=== PATIENT | male | born 1995 | race Caucasian/White ===

== ENCOUNTER 2019-09-09 07:46 | Emergency (ER) | payer OTHER ==
[~2019-09-09] VITALS: Ht 167.6 cm; Wt 63.5 kg
[2019-09-09 08:20] LABS: Urine Bacteria NONE SEEN /hpf (None Seen); Urine Blood Negative /uL (Negative); Urine Specific Gravity 1.004 (1.001-1.035); Urine WBC 1 /hpf (0 - 3)
[2019-09-09 08:35] LABS: Amphetamine Screen, Urine NEGATIVE (NEGATIVE); Barbiturate Scree,Urine NEGATIVE (NEGATIVE); Benzodiazephine Screen, Urine NEGATIVE (NEGATIVE); Cocaine Screen, Urine POSITIVE (NEGATIVE); Opiate Scree,Urine NEGATIVE (NEGATIVE); Phencyclidine Screen, Urine NEGATIVE (NEGATIVE)
[2019-09-09 09:06] LABS: Basophils # (auto) 0 uL; Basophils % (auto) 0.5 % (0.0-2.0); Eosinophils # (auto) 0.1 uL; Eosinophils % (auto) 0.7 % (0.0-7.0); Hematocrit 47.9 % (41.0-53.0); Hemoglobin 16.3 g/dL (13.5-17.5); Lymphocytes # (auto) 1.8 uL; Lymphocytes % (auto) 18.7 % (10.0-50.0); Mean Corpuscular Hemoglobin 29.6 pg (28.0-32.0); Monocytes # (auto) 0.4 uL; Monocytes % (auto) 4.3 % (0.0-12.0); Neutrophils # (auto) 7.5 uL; Neutrophils % (auto) 75.8 % (37.0-80.0); Nucleated Red Blood Cells % 0.1 %; Platelet Count (auto) 265 10^3/uL (140-450); Red Cell Distribution Width 12.3 % (11.8-14.3); White Blood Cell 9.8 10^3/uL (4.4-10.8)
[2019-09-09 09:09] LABS: Albumin 4.9 g/dL (3.4-5.0); BUN/Creatinine Ratio 9.1; Calcium 8.3 mg/dL (8.5-10.1); Potassium 3.6 mmol/L (3.5-5.1); Salicylate < 1.7 mg/dL (2.8-20.0)
[2019-09-09 09:09] LABS: Cannabinoid Screen, Urine NEGATIVE (NEGATIVE)
[2019-09-09 09:12] LABS: Bilirubin, Total 0.4 mg/dL (0.2-1.0); Total Protein 8.4 g/dL (6.4-8.2)
[2019-09-09 09:14] LABS: Acetaminophen < 2.0 ug/mL (10-30)
[2019-09-09 13:02] LABS: Albumin 4.3 g/dL (3.4-5.0); Calcium 8.6 mg/dL (8.5-10.1); Potassium 3.7 mmol/L (3.5-5.1)
[2019-09-09 13:04] LABS: BUN/Creatinine Ratio 7.5; Bilirubin, Total 0.4 mg/dL (0.2-1.0); Total Protein 8.1 g/dL (6.4-8.2)
[2019-09-09] MEDS ORDERED: THIAMINE 100mg/ml INJ (200mg/2ml VIAL) IM ONE (14:45)
[2019-09-09 15:29] VITALS: BP 125/82
== END 2019-09-09 15:44 | disposition home or self-care (01) ==
LOC: ER 07:46
DX: F14.10 Cocaine abuse, uncomplicated (principal); F10.10 Alcohol abuse, uncomplicated; R45.851 Suicidal ideations; Y90.9 Presence of alcohol in blood, level not specified
CPT/HCPCS: 36415; 80053; 80307; 80329; 81001; 85025; 93005; 94761; 96372; 99284; J3411

== ENCOUNTER 2020-07-27 09:14 | Emergency (ER) | payer OTHER ==
[~2020-07-27] VITALS: Ht 167.6 cm; Wt 59.9 kg
[2020-07-27 09:21] VITALS: BP 158/83
== END 2020-07-27 10:11 | disposition home or self-care (01) ==
LOC: ER 09:14
DX: S61.303A Unspecified open wound of left middle finger with damage to nail, initial encounter (principal); S61.102A Unspecified open wound of left thumb with damage to nail, initial encounter; X58.XXXA Exposure to other specified factors, initial encounter; Y93.89 Activity, other specified; Y92.89 Other specified places as the place of occurrence of the external cause; Y99.8 Other external cause status
CPT/HCPCS: 73130

== ENCOUNTER 2023-04-16 07:13 | Emergency (ER) | payer OTHER ==
[~2023-04-16] VITALS: Ht 170.2 cm; Wt 62.5 kg
[2023-04-16 08:04] VITALS: BP 132/84
[2023-04-16] MEDS ORDERED: TRIA0.02 TOP (08:23)
[2023-04-16] MEDS ORDERED: CEPH-510 PO (08:23)
== END 2023-04-16 08:25 | disposition home or self-care (01) ==
LOC: ER 07:13
DX: S50.862A Insect bite (nonvenomous) of left forearm, initial encounter (principal); T78.40XA Allergy, unspecified, initial encounter; W57.XXXA Bitten or stung by nonvenomous insect and other nonvenomous arthropods, initial encounter; Y93.89 Activity, other specified; Y92.89 Other specified places as the place of occurrence of the external cause; Y99.8 Other external cause status